=== PATIENT | female | born 1980 | race Caucasian/White ===

== ENCOUNTER 2016-07-31 11:40 | Emergency (ER) | payer OTHER ==
[2016-07-31 12:05] VITALS: BP 124/86
--- NOTE | 2016-07-31 14:04 | UC ---
Throat Pain/Nasal Tim HPI - HPI Summary HPI Summary: ST, [place], vomiting, diarrhea x 2 days. +fever to 102 at 0500am today. Took "tylenol tension JOHNSON" 2 at 0500am. vomited last 0300am. Has thick green vomit, drank coffee with coffee grounds, so started to say "coffee grounds" for the vomit, then changed her wording. - History of Current Complaint Chief Complaint: UCGeneralIllness Stated Complaint: SORE THROAT,COUGH Time Seen by Provider: 07/31/16 13:41 Hx Obtained From: Patient Hx Last Menstrual Period: hysterectomy Onset/Duration: Gradual Onset, Lasting Days, Still Present Severity: Moderate Pain Intensity: 9 Pain Scale Used: 0-10 Numeric Cough: Productive - green Associated Signs & Symptoms: Positive: Dysphagia, Sinus Discomfort, Nasal Discharge, Fever, Vomiting Related History: Smoking - Epiglottits Risk Factors Epiglottis Risk Factors: Negative - Allergies/Home Medications Allergies/Adverse Reactions: Allergies Allergy/AdvReac Type Severity Reaction Status Date / Time Cephalexin [From Keflex] Allergy Severe throat Verified 07/31/16 12:05 swelling Cephalosporins Allergy Severe throat Verified 07/31/16 12:05 swelling Tetracycline Allergy Severe Swelling Verified 07/31/16 12:05 Povidone Iodine Allergy Intermediate Rash Verified 07/31/16 12:05 [From Betadine] Ibuprofen Allergy See Comment Verified 07/31/16 12:05 Ketorolac Tromethamine Allergy See Comment Verified 07/31/16 12:05 [From Toradol] NSAIDs Allergy See Comment Verified 07/31/16 12:05 Home Medications: Home Medications Cyclobenzaprine TAB* [Flexeril TAB*] 10 mg PO TID PRN 07/31/16 [History Confirmed 07/31/16] Omeprazole CAP* [Prilosec CAP* 20 MG] 20 mg PO DAILY 07/31/16 [History Confirmed 07/31/16] clonazePAM TAB(*) [KlonoPIN TAB(*)] 1 mg PO TID PRN 07/31/16 [History Confirmed 07/31/16] PMH/Surg Hx/FS Hx/Imm Hx Endocrine History Of: Reports: Diabetes Cardiovascular History Of: Reports: Hypertension Denies: Pacemaker/ICD Respiratory History Of: Reports: Asthma GI/ History Of: Reports: Renal Disease - RENAL FAILURE - Surgical History Surgical History: Yes Surgery Procedure, Year, and Place: tubal ligation. left ovary removed d/t cysts. appendectomy. oral surgery. ENDOMETRIAL ABLATION. Hysterectomy 06/25 - Family History Known Family History: Positive: Hypertension - Social History Occupation: Disabled - s/p hysterectomy 06/2016 Lives: With Family Alcohol Use: None Substance Use Type: None Smoking Status (MU): Light Every Day Tobacco Smoker Type: Cigarettes Amount Used/How Often: 3 cigarettes daily Household Exposure Type: Cigarettes Cessation Counseling: Patient Advised to Stop Review of Systems Constitutional: Fever Skin: Negative Eyes: Negative ENT: Sore Throat Respiratory: Cough Cardiovascular: Negative Gastrointestinal: Vomiting, Diarrhea Genitourinary: Negative Motor: Negative Neurovascular: Negative Musculoskeletal: Negative Neurological: Headache Psychological: Negative All Other Systems Reviewed And Are Negative: Yes Physical Exam Triage Information Reviewed: Yes Appearance: Ill-Appearing, Pain Distress, Obese Vital Signs: Initial Vital Signs Pulse 82 07/31/16 12:01 Resp 16 07/31/16 12:01 BP 124/86 07/31/16 12:01 Pulse Ox 99 07/31/16 12:01 Vital Signs Reviewed: Yes Eyes: Positive: Conjunctiva Clear ENT: Positive: Pharyngeal erythema, TMs normal Neck: Positive: Supple, Nontender, No Lymphadenopathy Respiratory: Positive: Lungs clear, Decreased breath sounds Cardiovascular: Positive: RRR, No Murmur, Pulses Normal, Brisk Capillary Refill Abdomen Description: Positive: Nontender, No Organomegaly, Soft. Negative: CVA Tenderness (R), CVA Tenderness (L), Distended, Guarding, McBurney's Point Tenderness, Peritoneal Signs, Pulsatile Mass Bowel Sounds: Positive: Present Musculoskeletal: Positive: Strength Intact, ROM Intact Neurological: Positive: Alert, Muscle Tone Normal Psychological Exam: Normal Skin Exam: Normal Throat Pain/Nasal Course/Dx - Course Assessment/Plan: rapid A neg - Differential Dx/Diagnosis Differential Diagnosis/HQI/PQRI: Influenza, Otitis Media, Pharyngitis, Sinusitis , URI Provider Diagnoses: viral syndrome. acute cough Discharge - Discharge Plan Condition: Stable Disposition: HOME Prescriptions: Ondansetron ODT TAB* [Zofran Odt TAB*] 4 mg PO Q6H PRN #10 tab.odt PRN Reason: Nausea guaiFENesin/CODIEN 100MG-10MG* [Robitussin AC 100Mg-10Mg*] 5 ml PO Q4H PRN #50 ml MDD 20ml PRN Reason: Cough Patient Education Materials: Viral Syndrome (ED), Acute Cough (ED) Referrals: Shandra Roach PA [Primary Care Provider] -
[2016-07-31] MEDS ORDERED: Ondansetron ODT TAB* 4 MG PO ONE (14:07)
[2016-07-31] MEDS ORDERED: Acetaminophen TAB* 325 MG PO ONE (14:08)
== END 2016-07-31 14:31 | disposition home or self-care (01) ==
LOC: UCCORT 11:40
DX: B34.9 Viral infection, unspecified (principal); R05 Cough; J45.909 Unspecified asthma, uncomplicated; E11.22 Type 2 diabetes mellitus with diabetic chronic kidney disease; I12.9 Hypertensive chronic kidney disease with stage 1 through stage 4 chronic kidney disease, or unspecified chronic kidney disease; N18.9 Chronic kidney disease, unspecified; F17.210 Nicotine dependence, cigarettes, uncomplicated; Z88.3 Allergy status to other anti-infective agents; Z88.6 Allergy status to analgesic agent; Z88.1 Allergy status to other antibiotic agents
CPT/HCPCS: 87086; 87651; 99212; A9270-GY; G0463

== ENCOUNTER 2016-08-11 15:36 | Emergency (ER) | payer OTHER ==
[2016-08-11] MEDS ORDERED: methylPREDNISolone 125 MG* 2 ML VIAL IM ONE (15:57)
--- NOTE | 2016-08-11 16:02 | UC ---
Allergic Reaction HPI - HPI Summary HPI Summary: patient was treated for sore throat with a z pack, is having a drug reaction with a pruritic rash on arms and chest. thraot is very sore having difficulty swallowing, which is not a new development. - History of Current Complaint Stated Complaint: RASH,POSSIBLE ALLERGIC REACTION Time Seen by Provider: 08/11/16 15:50 Hx Obtained From: Patient Hx Last Menstrual Period: hysterectomy ?: No Onset/Duration: Sudden Onset, Lasting Days Severity Initially: Severe Severity Currently: Severe Pain Intensity: 9 Pain Scale Used: 0-10 Numeric - Allergies/Home Medications Allergies/Adverse Reactions: Allergies Allergy/AdvReac Type Severity Reaction Status Date / Time Cephalexin [From Keflex] Allergy Severe throat Verified 07/31/16 12:05 swelling Cephalosporins Allergy Severe throat Verified 07/31/16 12:05 swelling Tetracycline Allergy Severe Swelling Verified 07/31/16 12:05 Povidone Iodine Allergy Intermediate Rash Verified 07/31/16 12:05 [From Betadine] Ibuprofen Allergy See Comment Verified 07/31/16 12:05 Ketorolac Tromethamine Allergy See Comment Verified 07/31/16 12:05 [From Toradol] NSAIDs Allergy See Comment Verified 07/31/16 12:05 PMH/Surg Hx/FS Hx/Imm Hx Previously Healthy: No Endocrine History Of: Reports: Diabetes Cardiovascular History Of: Reports: Hypertension Denies: Pacemaker/ICD Respiratory History Of: Reports: Asthma GI/ History Of: Reports: Renal Disease - RENAL FAILURE - Surgical History Surgical History: Yes Surgery Procedure, Year, and Place: tubal ligation. left ovary removed d/t cysts. appendectomy. oral surgery. ENDOMETRIAL ABLATION. Hysterectomy 06/25 - Family History Known Family History: Positive: Hypertension - Social History Alcohol Use: None Substance Use Type: None Smoking Status (MU): Light Every Day Tobacco Smoker Type: Cigarettes Amount Used/How Often: 3 cigarettes daily Household Exposure Type: Cigarettes Review of Systems Skin: Negative Eyes: Negative ENT: Sore Throat, Nasal Discharge Respiratory: Shortness Of Breath, Cough Cardiovascular: Negative Gastrointestinal: Negative Genitourinary: Negative Motor: Negative Neurovascular: Negative Musculoskeletal: Negative Neurological: Headache Psychological: Negative All Other Systems Reviewed And Are Negative: Yes Physical Exam Triage Information Reviewed: Yes Appearance: Ill-Appearing, Pain Distress, Obese Vital Signs Reviewed: Yes Eye Exam: Normal Eyes: Positive: Conjunctiva Clear ENT Exam: Normal ENT: Positive: Pharyngeal erythema, Nasal drainage, TMs normal, Tonsillar swelling, Tonsillar exudate, Muffled/hoarse voice Dental Exam: Normal Neck exam: Normal Neck: Positive: Supple, Nontender, No Lymphadenopathy Respiratory: Positive: Chest non-tender, Rhonchi, Wheezing, Inspiration Cardiovascular Exam: Normal Cardiovascular: Positive: RRR, No Murmur, Pulses Normal Abdominal Exam: Normal Abdomen Description: Positive: Nontender, No Organomegaly, Soft Bowel Sounds: Positive: Present Musculoskeletal Exam: Normal Musculoskeletal: Positive: Strength Intact, ROM Intact, No Edema Neurological Exam: Normal Neurological: Positive: Alert, Muscle Tone Normal Psychological Exam: Normal Skin Exam: Normal Allergic Reaction Course/Dx - Course Course Of Treatment: hx obtained, exam performed, meds reviewed, medications given for allergic reaction and severe sore throat. Rapid strep is positive, treated with one dose of PEN G BEnthazine one time dose - Differential Dx/Diagnosis Provider Diagnoses: strep throat. allergic reaction to zithromax. headache Discharge - Discharge Plan Condition: Stable Disposition: HOME Patient Education Materials: Antibiotic Medication Allergy (ED) Additional Instructions: you were given a one time dose of Penicillin for strep throat. and a solumedrol injection for the allergic reaction. Increase your fluid intake and expect the rash to pop up now and then until completely out of your system. folow up with you doctor if symptoms persist.
[2016-08-11 16:17] VITALS: BP 125/57
[2016-08-11] MEDS ORDERED: Penicillin G Benzathine 1.2MU* 1,200,000 UNITS/2 ML SYR IM ONE (16:18)
== END 2016-08-11 17:03 | disposition home or self-care (01) ==
LOC: UCCORT 15:36
DX: J02.0 Streptococcal pharyngitis (principal); T36.3X5A Adverse effect of macrolides, initial encounter; R51 Headache; N19 Unspecified kidney failure; E66.9 Obesity, unspecified; F17.210 Nicotine dependence, cigarettes, uncomplicated; Y92.9 Unspecified place or not applicable; Z88.1 Allergy status to other antibiotic agents; Z88.6 Allergy status to analgesic agent; Z88.8 Allergy status to other drugs, medicaments and biological substances
CPT/HCPCS: 87651; 96372; 99201; G0463; J0558; J2930

== ENCOUNTER 2016-08-22 09:40 | Emergency (ER) | payer OTHER ==
[2016-08-22 10:15] VITALS: BP 127/72
[2016-08-22] MEDS ORDERED: predniSONE TAB* 20 MG PO ONE (11:16)
--- NOTE | 2016-08-22 11:21 | UC ---
Respiratory Complaint HPI - HPI Summary HPI Summary: worsening cough and congestion for 3 days seen pcp rx with augmentin chest still feels tight - History of Current Complaint Chief Complaint: UCRespiratory Stated Complaint: CHEST CONGESTION Time Seen by Provider: 08/22/16 11:02 Hx Obtained From: Patient Hx Last Menstrual Period: hysterectomy ?: No Onset/Duration: Sudden Onset, Lasting Days - 3, Still Present Timing: Constant Severity Initially: Moderate Severity Currently: Moderate Character: Cough: Productive Aggravating Factors: Deep Breaths Alleviating Factors: Bronchodilator Associated Signs And Symptoms: Positive: Pleuritic Chest Pain, Wheezing, URI - Allergies/Home Medications Allergies/Adverse Reactions: Allergies Allergy/AdvReac Type Severity Reaction Status Date / Time Cephalexin [From Keflex] Allergy Severe throat Verified 08/22/16 10:08 swelling Cephalosporins Allergy Severe throat Verified 08/22/16 10:08 swelling Tetracycline Allergy Severe Swelling Verified 08/22/16 10:08 Povidone Iodine Allergy Intermediate Rash Verified 08/22/16 10:08 [From Betadine] Azithromycin Allergy Swelling Verified 08/22/16 10:08 Of Face,Lips,& Throat Ibuprofen Allergy See Comment Verified 08/22/16 10:08 Ketorolac Tromethamine Allergy See Comment Verified 08/22/16 10:08 [From Toradol] NSAIDs Allergy See Comment Verified 08/22/16 10:08 Home Medications: Home Medications Amoxicillin/Clavulanate TAB* [Augmentin TAB 875*] 875 mg PO BID 08/22/16 [ History Confirmed 08/22/16] Losartan TAB* [Cozaar TAB*] 50 mg PO DAILY 08/22/16 [History Confirmed 08/22/16] PMH/Surg Hx/FS Hx/Imm Hx Previously Healthy: No Endocrine History Of: Reports: Diabetes - gestational Cardiovascular History Of: Reports: Hypertension Denies: Pacemaker/ICD Respiratory History Of: Reports: Asthma GI/ History Of: Reports: Renal Disease - RENAL FAILURE - Surgical History Surgical History: Yes Surgery Procedure, Year, and Place: tubal ligation. left ovary removed d/t cysts. appendectomy. oral surgery. ENDOMETRIAL ABLATION. Hysterectomy 06/25 - Family History Known Family History: Positive: Hypertension - Social History Occupation: Unemployed Lives: With Family Alcohol Use: None Substance Use Type: None Smoking Status (MU): Light Every Day Tobacco Smoker Type: Cigarettes Amount Used/How Often: 3 cigarettes daily Household Exposure Type: Cigarettes Cessation Counseling: Counseled 3+Min - 10 Min Review of Systems Constitutional: Negative Skin: Negative Eyes: Negative ENT: Negative Respiratory: Cough Cardiovascular: Negative Gastrointestinal: Negative Genitourinary: Negative Motor: Negative Neurovascular: Negative Musculoskeletal: Negative Neurological: Negative Psychological: Negative All Other Systems Reviewed And Are Negative: Yes Physical Exam Triage Information Reviewed: Yes Appearance: Ill-Appearing - mild, Pain Distress - mild, Obese Vital Signs: Initial Vital Signs Temp 97.9 F 08/22/16 10:10 Pulse 82 08/22/16 10:10 Resp 16 08/22/16 10:10 BP 127/72 08/22/16 10:10 Pulse Ox 99 08/22/16 10:10 Vital Signs Reviewed: Yes Eye Exam: Normal Eyes: Positive: Conjunctiva Clear ENT Exam: Normal ENT: Positive: Normal ENT inspection, Hearing grossly normal, Pharynx normal, Nasal congestion, Nasal drainage, TMs normal. Negative: Tonsillar swelling, Tonsillar exudate, Trismus, Muffled/hoarse voice Dental Exam: Other - no teeth Neck exam: Normal Neck: Positive: Supple, Nontender, No Lymphadenopathy Respiratory Exam: Normal Respiratory: Positive: Chest non-tender, No respiratory distress, No accessory muscle use, Decreased breath sounds Cardiovascular Exam: Normal Cardiovascular: Positive: RRR, No Murmur, Pulses Normal, Brisk Capillary Refill Musculoskeletal Exam: Normal Musculoskeletal: Positive: Strength Intact, ROM Intact, No Edema Neurological Exam: Normal Neurological: Positive: Alert, Muscle Tone Normal Psychological Exam: Normal Skin Exam: Normal UC Diagnostic Evaluation - Laboratory O2 Sat by Pulse Oximetry: 99 Respiratory Course/Dx - Course Course Of Treatment: increase use of mdi continue antibiodics, add prednisone, robitussin and codiene smoking cesation information - Differential Dx/Diagnosis Differential Diagnosis/HQI/PQRI: Bronchitis, Lower Resp Infection, Sinusitis Provider Diagnoses: Nicotine Dependant, Bronchitis Discharge - Discharge Plan Condition: Stable Disposition: HOME Patient Education Materials: How to Stop Smoking (ED), Cigarette Smoking and Your Health (GEN), Secondhand Smoke Exposure in Children (ED), Acute Cough (ED) Referrals: Shandra Roach PA [Primary Care Provider] - If Needed
== END 2016-08-22 12:11 | disposition home or self-care (01) ==
LOC: UCCORT 09:40
DX: J40 Bronchitis, not specified as acute or chronic (principal); I10 Essential (primary) hypertension; E66.9 Obesity, unspecified; F17.210 Nicotine dependence, cigarettes, uncomplicated; Z88.1 Allergy status to other antibiotic agents; Z88.6 Allergy status to analgesic agent; Z88.8 Allergy status to other drugs, medicaments and biological substances
CPT/HCPCS: 99212; G0463; J7512

== ENCOUNTER 2017-01-27 09:24 | Emergency (ER) | payer OTHER ==
[2017-01-27 09:54] VITALS: BP 141/78
--- NOTE | 2017-01-27 10:07 | UC ---
Throat Pain/Nasal Tim HPI - HPI Summary HPI Summary: SORE THROAT X 2 DAYS NO FEVER, + CHILLS, NO NASAL CONGESTION , NO COUGH - History of Current Complaint Chief Complaint: UCGeneralIllness Stated Complaint: SORE THROAT Time Seen by Provider: 01/27/17 09:34 Hx Obtained From: Patient Hx Last Menstrual Period: hysterectomy ?: No Onset/Duration: Gradual Onset, Lasting Days - 2, Still Present Severity: Moderate Cough: None Associated Signs & Symptoms: Negative: Dysphagia, FB Sensation, Drooling, Wheezing, Hoarseness, Sinus Discomfort, Nasal Discharge, Fever, Rash - Allergies/Home Medications Allergies/Adverse Reactions: Allergies Allergy/AdvReac Type Severity Reaction Status Date / Time Cephalexin [From Keflex] Allergy Severe throat Verified 01/27/17 09:38 swelling Cephalosporins Allergy Severe throat Verified 01/27/17 09:38 swelling Tetracycline Allergy Severe Swelling Verified 01/27/17 09:38 Povidone Iodine Allergy Intermediate Rash Verified 01/27/17 09:38 [From Betadine] Azithromycin Allergy Swelling Verified 01/27/17 09:38 Of Face,Lips,& Throat Ibuprofen Allergy See Comment Verified 01/27/17 09:38 Ketorolac Tromethamine Allergy See Comment Verified 01/27/17 09:38 [From Toradol] NSAIDs Allergy See Comment Verified 01/27/17 09:38 PMH/Surg Hx/FS Hx/Imm Hx Previously Healthy: Yes - Surgical History Surgical History: Yes Surgery Procedure, Year, and Place: tubal ligation. left ovary removed d/t cysts. appendectomy. oral surgery. ENDOMETRIAL ABLATION. Hysterectomy. Hysterectomy 06/25 - Family History Known Family History: Positive: Hypertension - Social History Alcohol Use: None Substance Use Type: None Smoking Status (MU): Light Every Day Tobacco Smoker Type: Cigarettes Amount Used/How Often: 3 cigarettes daily Household Exposure Type: Cigarettes - Immunization History Most Recent Influenza Vaccination: NONE 2016 Most Recent Tetanus Shot: UTD Most Recent Pneumonia Vaccination: N/A Review of Systems Constitutional: Negative Skin: Negative Eyes: Negative ENT: Sore Throat Respiratory: Negative All Other Systems Reviewed And Are Negative: Yes Physical Exam Triage Information Reviewed: Yes Appearance: Well-Appearing, No Pain Distress, Well-Nourished Vital Signs: Initial Vital Signs Temp 97 F 01/27/17 09:40 Pulse 90 01/27/17 09:40 Resp 16 01/27/17 09:40 BP 141/78 01/27/17 09:40 Pulse Ox 98 01/27/17 09:40 Vital Signs Reviewed: Yes Eyes: Positive: Conjunctiva Clear ENT: Positive: Normal ENT inspection, Hearing grossly normal, Pharyngeal erythema. Negative: Nasal congestion, Nasal drainage Neck exam: Normal Neck: Positive: Supple, Nontender, No Lymphadenopathy Respiratory: Positive: Chest non-tender, Lungs clear, Normal breath sounds Cardiovascular: Positive: RRR, No Murmur, Pulses Normal Musculoskeletal Exam: Normal Neurological Exam: Normal Neurological: Positive: Alert Throat Pain/Nasal Course/Dx - Differential Dx/Diagnosis Provider Diagnoses: PHARYNGITIS Discharge - Discharge Plan Condition: Stable Disposition: HOME Prescriptions: Clindamycin Cap(NF) [Cleocin 300 mg Cap(NF)] 300 mg PO TID #30 cap Patient Education Materials: Pharyngitis (ED) Forms: *Work Release Referrals: Shandra Roach PA [Primary Care Provider] - If Needed
== END 2017-01-27 10:20 | disposition home or self-care (01) ==
LOC: UCCORT 09:24
DX: J02.9 Acute pharyngitis, unspecified (principal); Z88.1 Allergy status to other antibiotic agents; Z88.6 Allergy status to analgesic agent; Z88.5 Allergy status to narcotic agent; F17.210 Nicotine dependence, cigarettes, uncomplicated
CPT/HCPCS: 87651; 99212; G0463

== ENCOUNTER 2017-12-19 14:12 | Emergency (ER) | payer OTHER ==
--- NOTE | 2017-12-19 14:28 | UC ---
Knee Pain HPI - HPI Summary HPI Summary: 37 yo female presents with right posterior knee pain for the last 4 days. Has not taken anything OTC for her discomfort. She is very worried that this could be a blood clot as her mother had a blood clot - according to pt - that was misdiagnosed as a jones's cyst and 2 days later clot went to her lungs. Pt denies fever, chills, SOB, chest pain, cancer hx, injury, or recent travel. - History of Current Complaint Stated Complaint: RT KNEE PAIN *4DAYS Time Seen by Provider: 12/19/17 14:26 Hx Obtained From: Patient Hx Last Menstrual Period: hysterectomy Onset/Duration: Sudden Onset Severity Initially: Moderate Severity Currently: Moderate Location Of Injury: 7 Pain Scale Used: 0-10 Numeric Able to Bear Weight: Yes - Allergies/Home Medications Allergies/Adverse Reactions: Allergies Allergy/AdvReac Type Severity Reaction Status Date / Time azithromycin Allergy Swelling Verified 12/19/17 14:36 Of Face,Lips,& Throat cephalexin [From Keflex] Allergy Swelling Verified 12/19/17 14:36 Of Face,Lips,& Throat Cephalosporins Allergy Swelling Verified 12/19/17 14:36 Of Face,Lips,& Throat clindamycin Allergy Swelling Verified 12/19/17 14:36 Of Face,Lips,& Throat ibuprofen Allergy See Comment Verified 12/19/17 14:36 ketorolac Allergy See Comment Verified 12/19/17 14:36 NSAIDS (Non-Steroidal Allergy See Comment Verified 12/19/17 14:37 Anti-Inflamma povidone-iodine Allergy Rash Verified 12/19/17 14:36 [From Betadine] soap [From Betadine] Allergy Rash Verified 12/19/17 14:36 tetracycline Allergy Swelling Verified 12/19/17 14:36 PMH/Surg Hx/FS Hx/Imm Hx Cardiovascular History: Hypertension GI/ History: Gastroesophageal Reflux - Surgical History Surgical History: Yes Surgery Procedure, Year, and Place: tubal ligation. left ovary removed d/t cysts. appendectomy. oral surgery. ENDOMETRIAL ABLATION. Hysterectomy 06/25 - Family History Known Family History: Positive: Hypertension - Social History Lives: With Family Alcohol Use: None Substance Use Type: None Smoking Status (MU): Light Every Day Tobacco Smoker Type: Cigarettes Amount Used/How Often: 3 cigarettes daily Household Exposure Type: Cigarettes - Immunization History Most Recent Influenza Vaccination: NONE 2015 Most Recent Tetanus Shot: UTD Most Recent Pneumonia Vaccination: N/A Review of Systems Constitutional: Negative Skin: Negative Respiratory: Negative Cardiovascular: Negative Motor: Negative Neurovascular: Negative Musculoskeletal: Other: - Right posterior knee pain Neurological: Negative Psychological: Negative All Other Systems Reviewed And Are Negative: Yes Physical Exam - Summary Physical Exam Summary: GENERAL: NAD. Obese. SKIN: No rashes, sores, lesions, or open wounds. NECK: Supple. Nontender. No lymphadenopathy. CHEST: No accessory muscle use. Breathing comfortably and in no distress. CV: RRR. Without m/r/g. Pulses intact PT and DP. Brisk cap refill. MSK: Exam limited due to body habitus. Right knee: Posterior TTP. Strength 5/5. Good flexion. Cannot fully extend due to pain. Unable to perform specialized testing due to body habitus. NEURO: Alert. Sensations intact and symmetric B/L LEs PSYCH: Age appropriate behavior. Triage Information Reviewed: Yes Vital Signs: Vital Signs: Temp Pulse Resp BP Pulse Ox 98.1 F 101 18 131/73 98 12/19/17 14:24 12/19/17 14:24 12/19/17 14:24 12/19/17 14:24 12/19/17 14:24 Knee Pain Course/Dx - Course Course Of Treatment: Low suspicion for DVT, but given patient's main concern about this - an ultrasound was ordered. US results: SOFT TISSUES: Grossly normal. No large popliteal fossa cyst was identified. IMPRESSION: No sonographic evidence of deep vein thrombosis. I suspect her pain is due to a strain or exacerbated by her obesity. She has not yet tried anything OTC - I recommended she try tylenol for pain. She was offered physical therapy, but declined. - Differential Dx/Diagnosis Provider Diagnoses: Right posterior knee pain Discharge - Sign-Out/Discharge Documenting (check all that apply): Discharge/Admit/Transfer - Discharge Plan Condition: Stable Disposition: HOME Patient Education Materials: Knee Pain (ED) Referrals: Shandra Roach PA [Primary Care Provider] - Additional Instructions: If you develop a fever, shortness of breath, chest pain, new or worsening symptoms - please call your PCP or go to the ED. Your blood pressure was high at todays visit. Please see your primary provider within 4 weeks for recheck and re-evaluation. 1) May take tylenol for pain - Billing Disposition and Condition Condition: STABLE Disposition: Home
[2017-12-19 14:32] VITALS: BP 131/73
--- NOTE | 2017-12-19 15:15 | RAD ---
HISTORY: Calf and posterior right knee pain TECHNIQUE: Multiple transverse and longitudinal ultrasound images were obtained of the veins of the right lower extremity using grayscale, color Doppler, and spectral Doppler imaging with and without compression and with augmentation. FINDINGS: VEINS: The common femoral vein, deep femoral vein, femoral vein and popliteal vein are compressible throughout their course, with normal flow on color Doppler imaging and normal response to augmentation on spectral Doppler imaging. SOFT TISSUES: Grossly normal. No large popliteal fossa cyst was identified. IMPRESSION: No sonographic evidence of deep vein thrombosis.
== END 2017-12-19 15:12 | disposition home or self-care (01) ==
LOC: UCCORT 14:12
DX: M25.561 Pain in right knee (principal); Z88.1 Allergy status to other antibiotic agents; Z88.8 Allergy status to other drugs, medicaments and biological substances; Z88.5 Allergy status to narcotic agent; Z91.09 Other allergy status, other than to drugs and biological substances; I10 Essential (primary) hypertension; F17.210 Nicotine dependence, cigarettes, uncomplicated; E66.9 Obesity, unspecified
CPT/HCPCS: 99211; G0463

== ENCOUNTER 2018-03-01 18:29 | Emergency (ER) | payer OTHER ==
[2018-03-01 19:04] VITALS: BP 114/70
--- NOTE | 2018-03-01 19:23 | UC ---
Abdominal Pain Female HPI - HPI Summary HPI Summary: 37 y/o female presents to the urgent care c/o cramping abdominal pain w/ nausea , vomiting and diarrhea and JOHNSON since last night. Pt repots she went to [facility] yesterday and walked in the beach, but was not in the water. [facility] has been closed for the summer due to E.Coli. She also ate a full breakfast w/ pancakes at a restaurant this morning and it made symptoms worse. Pt has Hx of Migraine JOHNSON and she can't only take Tylenol PO. Pt has had 7 episode of watery diarrhea and 2 episodes of vomiting. Cramping abdominal pain is relief w/ BM.Pt denies blood in the stool. pt has been drinking water, Hx of hysterectomy 2 years ago. Pt denies fever, SOB, chest pain, dizziness, urinary symptoms, vaginal discharge. - History of Current Complaint Chief Complaint: UCGI Stated Complaint: GI UPSET, MIGRAINE Time Seen by Provider: 03/01/18 19:21 Hx Obtained From: Patient Hx Last Menstrual Period: hysterectomy ?: No Onset/Duration: Gradual Onset, Lasting Days - 1 day, Still Present, Worse Since - today Timing: Intermittent Episodes Lasting: Severity Initially: Mild Severity Currently: Moderate Pain Intensity: 8 Pain Scale Used: 0-10 Numeric Location: Diffuse - cramping abdominal pain relief w/ BM Radiates: No Character: Cramping Aggravating Factor(s): Food Alleviating Factor(s): NPO Associated Signs and Symptoms: Positive: Decreased Appetite, Nausea, Vomiting, Diarrhea. Negative: Diaphoresis, Fever, Cough, Chest Pain, Dizzy, Back Pain, Constipation, Blood in Stool, Urinary Symptoms - Risk Factors Ectopic Risk Factor: Negative Allergies/Adverse Reactions: Allergies Allergy/AdvReac Type Severity Reaction Status Date / Time azithromycin Allergy Swelling Verified 03/01/18 19:04 Of Face,Lips,& Throat cephalexin [From Keflex] Allergy Swelling Verified 03/01/18 19:04 Of Face,Lips,& Throat Cephalosporins Allergy Swelling Verified 03/01/18 19:04 Of Face,Lips,& Throat clindamycin Allergy Swelling Verified 03/01/18 19:04 Of Face,Lips,& Throat ibuprofen Allergy See Comment Verified 03/01/18 19:04 ketorolac Allergy See Comment Verified 03/01/18 19:04 NSAIDS (Non-Steroidal Allergy See Comment Verified 03/01/18 19:04 Anti-Inflamma povidone-iodine Allergy Rash Verified 03/01/18 19:04 [From Betadine] soap [From Betadine] Allergy Rash Verified 03/01/18 19:04 tetracycline Allergy Swelling Verified 03/01/18 19:04 Home Medications: Home Medications Albuterol HFA INHALER* [Ventolin HFA Inhaler*] 2 puff INH Q4H PRN 03/01/18 [ History Confirmed 03/01/18] Gabapentin CAP(*) [Neurontin 300 CAP(*)] 600 mg PO TID 03/01/18 [History Confirmed 03/01/18] Losartan TAB* [Cozaar TAB*] 50 mg PO DAILY 03/01/18 [History Confirmed 03/01/18] PMH/Surg Hx/FS Hx/Imm Hx Previously Healthy: Yes Other Endocrine History: Gestational DM II Cardiovascular History: Hypertension GI/ History: Gastroesophageal Reflux Neurological History: Migraine - Surgical History Surgical History: Yes Surgery Procedure, Year, and Place: tubal ligation. left ovary removed d/t cysts. appendectomy. oral surgery. ENDOMETRIAL ABLATION. Hysterectomy 06/25 - Family History Known Family History: Positive: Hypertension, Diabetes - Social History Occupation: Unemployed Lives: With Family Alcohol Use: Rare Substance Use Type: None Smoking Status (MU): Light Every Day Tobacco Smoker Type: Cigarettes Amount Used/How Often: 1/2 ppd Household Exposure Type: Cigarettes - Immunization History Most Recent Influenza Vaccination: NONE 2015 Most Recent Tetanus Shot: UTD Most Recent Pneumonia Vaccination: N/A Review of Systems Constitutional: Negative Skin: Negative Eyes: Negative ENT: Negative Respiratory: Negative Cardiovascular: Negative Gastrointestinal: Abdominal Pain, Vomiting, Diarrhea, Nausea Genitourinary: Negative Motor: Negative Neurovascular: Negative Musculoskeletal: Negative Neurological: Headache Psychological: Negative Is Patient Immunocompromised?: No All Other Systems Reviewed And Are Negative: Yes Physical Exam - Summary Physical Exam Summary: Vital Signs Reviewed: Yes General:Patient is a well developed and nourished obese female who is sitting comfortable in the examining table. Patient is not in any acute respiratory distress. Eyes: Positive: Conjunctiva Clear - PERRLA, EOMI, fundi grossly normal ENT: Positive: Normal ENT inspection, Hearing grossly normal, Pharynx normal, TMs normal Neck: Positive: Supple, Nontender, No Lymphadenopathy Respiratory: Positive: Chest non-tender, Lungs clear, Normal breath sounds, No respiratory distress Cardiovascular: Positive: RRR,S1 and S2 present, No Murmur, Pulses Normal, Brisk Capillary Refill Abdomen Description: Positive: Nontender, Abd: Flat with no distention. No surface trauma, scars, incisions. hyperactive bowel sounds present in all four quadrants. No tenderness, guarding, rigidity to palpation. No masses palpated, no pulsation in epigastric area. No organomegaly. Negative [place] signs. No periumbilical tenderness. No rebound in the lower quadrants. NT over [place] point. Good femoral pulses bilaterally. No hernia noted. No CVAT bilaterally Musculoskeletal: Positive: Strength Intact, ROM Intact, No Edema,FROM in all major joints, no edema, no cyanosis or clubbing. Neuro: Alert and oriented x 3. No acute neurological deficits. Speech is normal. Psychological: WNL Skin: Dry and warm Triage Information Reviewed: Yes Vital Signs: Initial Vital Signs Temp 97.5 F 03/01/18 18:56 Pulse 79 03/01/18 18:56 Resp 18 03/01/18 18:56 BP 114/70 03/01/18 18:56 Pulse Ox 98 03/01/18 18:56 Abd Pain Female Course/Dx - Course Course Of Treatment: 37 y/o female presents to the urgent care c/o cramping abdominal pain w/ nausea, vomiting and diarrhea and JOHNSON since last night. Pt repots she went to [facility] yesterday and walked in the beach, but was not in the water. [employer] has been closed for the summer due to E.Coli. She also ate a full breakfast w/ pancakes at a restaurant this morning and it made symptoms worse. Pt has Hx of Migraine JOHNSON and she can't only take Tylenol PO. Pt has had 7 episode of watery diarrhea and 2 episodes of vomiting. Cramping abdominal pain is relief w/ BM.Pt denies blood in the stool. pt has been drinking water, Hx of hysterectomy 2 years ago. Pt denies fever, SOB, chest pain, dizziness, urinary symptoms, vaginal discharge. Hx obtained. PE:WNL. UA: +trace blood. Pt w / PMHX of appendectomy.Pt most likely with a gastroenteritis. PE: WNL. Pt given Zofran PO, Famotidine PO and Tylenol PO to alleviate symptoms. Pt tolerated well medications and felt better after 20 min. Pt Rx same medications to alleviate symptoms. Pt advised to bring stool kit for stool culture to r/o E.Coli and advised to increase fluid intake, eat soft meals, rest. However if symptoms worsen and abdominal pain develops to go Immediately to the ER for further management. Pt explained D/C instructions. Pt understood and agreed w/ plan of care. Pt left the clinic ambulating,hemodynamically stable, A&OX3 - Differential Dx/Diagnosis Differential Diagnosis: Appendicitis, Bowel Obstruction, Irritable Bowel Syndrome, Peptic Ulcer Disease, Other - gastroenteritis, acute nausea and vomiting,acute diarrhea Provider Diagnoses: 1- Acute gastroenteritis. 2-Nausea and Vomiting Discharge - Sign-Out/Discharge Documenting (check all that apply): Patient Departure - D/C home All imaging exams completed and their final reports reviewed: No Studies - Discharge Plan Condition: Stable Disposition: HOME Prescriptions: Loperamide CAP* [Imodium CAP*] 2 mg PO SEE INSTRUCTIONS #12 cap Ondansetron ODT TAB* [Zofran 4 MG Odt TAB*] 4 mg PO Q6H PRN #12 tab.odt PRN Reason: nausea and vomiting Patient Education Materials: Gastroenteritis (ED), Acute Nausea and Vomiting ( ED) Forms: *Work Release Referrals: Shandra Roach PA [Primary Care Provider] - 2 Days Additional Instructions: 1- Please increase fluid intake w/ Pedialyte or Gatorade, eat soft meals and small portions, rest 2-Take Zofran PO as directed to alleviate nausea and vomiting. 3- Please collect your stool and bring it back for stool culture. You will be notified of any abnormality for further treatment. Start taking Loperamide PO only after collecting stool first to alleviate diarrhea 4- If you develop severe abdominal pain w/ recurrent episodes of diarrhea and vomiting please go to the ER, otherwise f/u with your PCP if diarrhea not resolving in 2-3 days - Billing Disposition and Condition Condition: STABLE Disposition: Home
[2018-03-01] MEDS ORDERED: Famotidine TAB* 20 MG PO ONE (19:51)
[2018-03-01] MEDS ORDERED: Ondansetron ODT TAB* 4 MG PO ONE ×2 (19:51→20:47)
[2018-03-01] MEDS ORDERED: Acetaminophen TAB* 325 MG PO ONE (19:51)
[2018-03-01] MEDS ORDERED: Ondansetron ODT TAB* 4 MG ONE (20:49)
--- NOTE | 2018-03-02 07:56 | UC ---
Discharge - Sign-Out/Discharge Documenting (check all that apply): Post-Discharge Follow Up All imaging exams completed and their final reports reviewed: No Studies - Discharge Plan Condition: Stable Disposition: HOME Prescriptions: Loperamide CAP* [Imodium CAP*] 2 mg PO SEE INSTRUCTIONS #12 cap Ondansetron ODT TAB* [Zofran 4 MG Odt TAB*] 4 mg PO Q6H PRN #12 tab.odt PRN Reason: nausea and vomiting Patient Education Materials: Gastroenteritis (ED), Acute Nausea and Vomiting ( ED) Forms: *Work Release Referrals: Shandra Roach PA [Primary Care Provider] - 2 Days Additional Instructions: 1- Please increase fluid intake w/ Pedialyte or Gatorade, eat soft meals and small portions, rest 2-Take Zofran PO as directed to alleviate nausea and vomiting. 3- Please collect your stool and bring it back for stool culture. You will be notified of any abnormality for further treatment. Start taking Loperamide PO only after collecting stool first to alleviate diarrhea 4- If you develop severe abdominal pain w/ recurrent episodes of diarrhea and vomiting please go to the ER, otherwise f/u with your PCP if diarrhea not resolving in 2-3 days - Billing Disposition and Condition Condition: STABLE Disposition: Home
== END 2018-03-01 20:54 | disposition home or self-care (01) ==
LOC: UCCORT 18:29
DX: K52.9 Noninfective gastroenteritis and colitis, unspecified (principal); Z88.6 Allergy status to analgesic agent; F17.210 Nicotine dependence, cigarettes, uncomplicated
CPT/HCPCS: 81003; 99213; A9270-GY; G0463